=== PATIENT | male | born 1990 | race African-American/Black ===

== ENCOUNTER 2024-01-12 13:36 | Outpatient (REF) | payer OTHER, SELFPAY ==
--- NOTE | ~2024-01-12 | MR_ITS ---
EXAMINATION: MR HAND WITHOUT CONTRAST, RIGHT CLINICAL INFORMATION: Pain in right thumb. COMPARISON: None available. TECHNIQUE: MRI of the right hand tailored to the right thumb MCP joint on a high-field MRI scanner. FINDINGS: RIGHT THUMB MCP JOINT: BONE/ARTICULAR CARTILAGE: There is a mild joint effusion and synovitis. There is some cartilage heterogeneity and perhaps some cartilage loss volarly along the proximal metacarpal surface. There is bone marrow edema crossing the joint, which could be related to bone contusion or arthrosis. Possible small cyst along the deep surface of the proximal radial collateral ligament. The proximal phalanx appears slightly subluxed ulnar compared with the metacarpal head. LIGAMENTS: Ulnar collateral ligament intact. LATERAL COLLATERAL LIGAMENT: There is ossification along the deep surface of the distal portion of the ligament without definite marrow edema. This could reflect old partial tear of the ligament and less likely old ununited fracture fragment. There is, however, increased signal along the proximal portion of the ligament compatible with partial tear. There also may be some enthesopathic cystic change at the carpal attachment. The volar and dorsal capsule are intact. MUSCLES AND TENDONS: Normal. Subcutaneous soft tissues normal. Remaining bones joints and soft tissues are unremarkable. MR/MR hand RT wo con IMPRESSION: 1. 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 Mild joint effusion. Bone marrow edema crossing the joint may reflect acute bone contusion or reactive related to the joint effusion and suspected mild arthrosis. 2. Partial tear of the lateral collateral ligament of the thumb MCP joint likely subacute or acute. 3. Ossification along the deep surface of the distal lateral collateral ligament likely reflects old partial tear and less likely old ununited fracture fragment.
== END 2024-01-12 13:37 | disposition home or self-care (01) ==
LOC: HO.MRI 13:36
PROVIDERS: Visit Provider Student in an Organized Health Care Education/Training Program
DX: M25.341 Other instability, right hand (principal); M79.644 Pain in right finger(s)
CPT/HCPCS: 73218